=== PATIENT | male | born 1975 | race Caucasian/White ===

== ENCOUNTER 2016-05-31 14:19 | Emergency (ER) | payer SELFPAY ==
[~2016-05-31] VITALS: Ht 182.9 cm; Wt 79.5 kg
[2016-05-31 14:24] VITALS: BP 121/76
[2016-05-31] MEDS ORDERED: IPRATROPIUM BROMIDE 0.5 MG/2.5 ML NEB SOLUTION NEB ONE (14:45)
[2016-05-31] MEDS ORDERED: ALBUTEROL SULFATE 2.5 MG/0.5 ML NEB SOLUTION NEB ONE (14:45)
[2016-05-31] MEDS ORDERED: 0.9% SODIUM CHLORIDE 5 ML NEB SOLUTION NEB ONE (16:18)
== END 2016-05-31 18:42 | disposition left against medical advice (07) ==
LOC: EMS 14:21
DX: J45.909 Unspecified asthma, uncomplicated (principal); F12.90 Cannabis use, unspecified, uncomplicated; Z88.0 Allergy status to penicillin
CPT/HCPCS: 94640; 99283; J7613

== ENCOUNTER 2017-07-22 12:06 | Emergency (ER) | payer MEDICAID ==
[~2017-07-22] VITALS: Ht 182.9 cm; Wt 81.8 kg
[2017-07-22] MEDS ORDERED: IBUPROFEN 800 MG TABLET PO ONE (13:00)
[2017-07-22 13:46] VITALS: BP 128/74
== END 2017-07-22 13:47 | disposition home or self-care (01) ==
LOC: EMS 12:07
DX: S09.91XA Unspecified injury of ear, initial encounter (principal); H66.91 Otitis media, unspecified, right ear; F12.10 Cannabis abuse, uncomplicated; F17.210 Nicotine dependence, cigarettes, uncomplicated; Z88.0 Allergy status to penicillin; W22.8XXA Striking against or struck by other objects, initial encounter; Y93.89 Activity, other specified; Y92.89 Other specified places as the place of occurrence of the external cause; Y99.8 Other external cause status
CPT/HCPCS: 99283